=== PATIENT | female | born 1955 | race Caucasian/White ===

== ENCOUNTER 2024-02-03 22:04 | Inpatient (IN) | payer MEDICARE, OTHER ==
[~2024-02-03] VITALS: Ht 73.7 cm; Wt 91.6 kg
[2024-02-03 22:15] VITALS: BP 141/50; TEMP 97.5; O2SAT 98
[2024-02-03] MEDS ORDERED: TEMAZEPAM 7.5 MG CAPSULE PO PRN (22:30)
[2024-02-03] MEDS ORDERED: MAG HYDROX/AL HYDROX/SIMETH 30 ML UDC PO PRN (22:30)
[2024-02-03] MEDS ORDERED: LORAZEPAM 0.5 MG TABLET PO PRN (22:30)
[2024-02-03] MEDS ORDERED: MAGNESIUM HYDROXIDE 30 ML UDC PO PRN (22:30)
[2024-02-03] MEDS ORDERED: ACETAMINOPHEN 325 MG TABLET PO PRN (22:30)
[2024-02-03] MEDS: BLOOD SUGAR DIAGNOSTIC 1 EACH STRIP IN ONE (23:07)
[2024-02-04] MEDS ORDERED: AZEL23SP2 BNOSTRILS (00:49)
[2024-02-04] MEDS ORDERED: ALPR0.5T8 PO (00:49)
[2024-02-04] MEDS ORDERED: ASPI-1169 PO ×2 (00:49)
[2024-02-04] MEDS ORDERED: ATEN25TA MT (00:49)
[2024-02-04] MEDS ORDERED: LOSA100T31 PO (00:49)
[2024-02-04] MEDS ORDERED: ESCI10TA PO (00:49)
[2024-02-04 08:00] VITALS: BP 151/54; TEMP 97.8; O2SAT 95
[2024-02-04] MEDS ORDERED: AZELASTINE BNOSTRILS PRN (12:00)
[2024-02-04] MEDS ORDERED: LOSARTAN POTASSIUM 50 MG TABLET PO SCH (12:00)
[2024-02-04] MEDS ORDERED: FLUTICASONE BNOSTRILS PRN (12:00)
[2024-02-06] MEDS ORDERED: ASPIRIN 81 MG TAB.CHEW PO SCH (09:00)
== END 2024-02-04 11:50 | disposition left against medical advice (07) | DRG 885 ==
LOC: GPS 22:04
PROVIDERS: ADMIT Psychiatry & Neurology Psychiatry; ATTEND Nurse Practitioner Acute Care
DX: F32.2 Major depressive disorder, single episode, severe without psychotic features (principal); I10 Essential (primary) hypertension; Z73.6 Limitation of activities due to disability
CPT/HCPCS: 82962-TC; 97110-TC; 97116-TC; 97530-TC